=== PATIENT | male | born 1970 | race Asian ===

== ENCOUNTER 2023-09-04 06:56 | Day surgery (SDC) | payer OTHER ==
[~2023-09-04] VITALS: Ht 170.2 cm; Wt 91.8 kg
[~2023-09-04 06:56] MED LIST: SODIUM CHLORIDE 0.9% 1,000 ML ONE
[2023-09-04] MEDS ORDERED: ASCO500 PO (07:37)
[2023-09-04] MEDS ORDERED: EMPA25TA3 PO (07:37)
[2023-09-04] MEDS ORDERED: CLON0.1T2 PO (07:37)
[2023-09-04] MEDS ORDERED: ALBU18HF12 IH (07:37)
[2023-09-04] MEDS ORDERED: ASPI81TA87 PO (07:37)
[2023-09-04] MEDS ORDERED: MONT-35 PO (07:37)
[2023-09-04] MEDS ORDERED: TIOT185 IH (07:37)
[2023-09-04] MEDS ORDERED: FAMO20 PO (07:37)
[2023-09-04] MEDS ORDERED: LOSA-382 PO (07:37)
[2023-09-04] MEDS ORDERED: METF-1211 PO (07:37)
[2023-09-04] MEDS ORDERED: CHOL200059 PO (07:37)
[2023-09-04] MEDS ORDERED: METO25 PO (07:37)
[2023-09-04] MEDS ORDERED: ALLO-45 PO (07:37)
[2023-09-04] MEDS ORDERED: SIMV-259 PO (07:37)
[2023-09-04] MEDS: SODIUM CHLORIDE 0.9% 1,000 ML IV ONE (08:11)
[2023-09-04 08:26] LABS: GLUCOMETER DEV NAME(LOC) SDS.; GLUCOSE,POINT OF CARE 98 MG/DL (70-110)
[2023-09-04] MEDS ORDERED: MIDAZOLAM HCL 2 MG/2 ML VIAL ONE (08:32)
[2023-09-04] MEDS ORDERED: FentaNYL CITRATE PF 100 MCG/2 ML VIAL ONE (08:32)
[2023-09-04 09:30] VITALS: PULSE 75; RESP 18; O2SAT 100
[2023-09-04] MEDS ORDERED: MethylPREDNISolone SOD SUCC 125 MG/2 ML VIAL ONE (10:03)
[2023-09-04] MEDS: MethylPREDNISolone SOD SUCC 125 MG/2 ML VIAL IVP ONE (10:22)
[2023-09-04] MEDS ORDERED: ALBUTEROL SULFATE 2.5 MG/0.5 ML NEB SOLUTION NEB ONE (12:00)
[2023-09-04] MEDS ORDERED: LIDOCAINE 2% 11 ML JELLY ONE (12:00)
[2023-09-04] MEDS ORDERED: LIDOCAINE 4% 50 ML SOLUTION ONE (12:00)
[2023-09-04] MEDS ORDERED: BENZOCAINE 20% 50 MCG/SPRAY 57 GM ONE (12:00)
== END 2023-09-04 11:20 | disposition home or self-care (01) ==
LOC: SURGERY 06:56
PROVIDERS: ATTEND Internal Medicine Critical Care Medicine
DX: J38.4 Edema of larynx (principal); B37.0 Candidal stomatitis; E11.9 Type 2 diabetes mellitus without complications; K21.9 Gastro-esophageal reflux disease without esophagitis; G47.30 Sleep apnea, unspecified; Z88.8 Allergy status to other drugs, medicaments and biological substances; Z98.890 Other specified postprocedural states; E78.00 Pure hypercholesterolemia, unspecified; Z79.899 Other long term (current) drug therapy; Z87.891 Personal history of nicotine dependence
CPT/HCPCS: 31623; 82962; 87206; 87101; 87220; 87070; 88108; 31624; 94640; 71045; 87015; J3010; J2250; J2919; Q9967; J7030; J7613; Z7610